=== PATIENT | male | born 1980 | race Hispanic/Latino ===

== ENCOUNTER → 2016-07-01 | Day surgery (SDC) | payer OTHER ==
[~2016-07-01] VITALS: Ht 177.8 cm; Wt 88.5 kg
[~2016-07-01] MED LIST: BACITRACIN OINT 30GM As Ordered ONE; BACT800T5 PO; BACTRIM 160MG/800MG DS TAB PO SCH; BUPIVACAINE HCL 0.25% 30 ML VIAL As Ordered ONE; BUPIVACAINE HCL 0.25% 30 ML VIAL XX ONE; GLYCOPYRROLATE INJ 0.2 MG/ML 2 ML VIAL As Ordered ONE; LIDOCAINE 1% SDV INJ 30 ML VIAL As Ordered ONE; LIDOCAINE 1% SDV INJ 30 ML VIAL XX ONE; LIDOCAINE 2% INJ 100 MG/5 ML SDV (FOR ANES.) As Ordered ONE; LR 1,000 ML IV SCH; MEPERIDINE INJ 25 MG/ML VIAL (J2175) IV PRN; METOCLOPRAMIDE INJ 10MG/2ML VIAL (J2765) IV PRN; MIDAZOLAM INJ 2 MG/2 ML VIAL (J2250) As Ordered ONE; NAPR250T2 PO; ONDANSETRON 4MG/2ML VIAL (J2405) As Ordered ONE; ONDANSETRON 4MG/2ML VIAL (J2405) IV PRN; PERCOCET 5MG/325MG TAB PO PRN; PERCOCET PO; PROPOFOL 200 MG/20 ML VIAL As Ordered ONE; fentaNYL 100 MCG/2 ML INJECTION (J3010) As Ordered ONE; fentaNYL 100 MCG/2 ML INJECTION (J3010) IV PRN
[2016-07-01] MEDS: LR 1,000 ML IV SCH ×2 (07:30→08:21)
--- NOTE | 2016-07-01 09:51 | RO ---
DATE OF PROCEDURE: 07/01/2016 PREPROCEDURE DIAGNOSIS: Phimosis. POSTPROCEDURE DIAGNOSIS: Phimosis. SURGERY PERFORMED: Circumcision. SURGEON: Carlos Godinez MD ASSISTANT WOMEN'S TENNIS COACH: None. ANESTHESIA: General. COMPLICATIONS: None. ESTIMATED BLOOD LOSS: N/A. HISTORY OF PRESENT ILLNESS: 35-year-old male patient with a history of difficulty retracting the foreskin and recurrent balanitis. For this reason, he has consented for a circumcision. DESCRIPTION OF PROCEDURE: With the patient in supine position under general anesthesia, after prepping and draping the area of concern, which included the entire genitalia and penis, we actually performed a penile block at the level at the base of the penis with Marcaine 0.25% and lidocaine 1%, total of 10 mL. We then proceeded to do an incision with a cold knife, #15 blade, circumferential incision 1 cm sulcus of the glans. After this, we performed another circumferential incision more proximal to the base for about 4 cm in distance from the first circumferential incision. We then resected the foreskin between these two incisions and fulgurated the bleeding vessels with electro Bovie cautery. We then approximated both edges with chromic #3-0 in separate stitches. Once this was performed, we placed Bacitracin cream and 2 x 2 and a Coban around the penis. PLAN: The patient will go home today with antibiotic and pain medication. Followup in three days for removal of the Coban. He cannot have sexual intercourse for one month. He may shower in three days. There were no complications of the surgery. Foreskin was sent for permanent pathology analysis.
[2016-07-01] MEDS: PERCOCET 5MG/325MG TAB PO PRN ×2 (10:18→10:39)
[2016-07-01 11:15] VITALS: BP 115/68
== END | disposition home or self-care (01) ==
LOC: M SDC 06:40
PROVIDERS: ATTEND Urology
DX: N47.1 Phimosis (principal)
CPT/HCPCS: 54161; 88304; J0690; J2250; J2405; J3010